=== PATIENT | male | born 1950 | race Caucasian/White ===

== ENCOUNTER 2018-10-18 15:25 | Emergency (ER) | payer BC, MEDICARE, SELFPAY ==
[2018-10-18 15:30] VITALS: BP 149/94; RESP 16; TEMP 36.5; O2SAT 95
--- NOTE | 2018-10-18 16:24 | DI.CT_ITS ---
SYMPTOMS/DIAGNOSIS: FALL, LOC, MIDLINE C SPINE PAIN OVER C6 CRANIAL CT (WITHOUT CONTRAST): A noncontrast cranial CT was performed. No priors. The ventricular system is normal in appearance. There is no evidence of an intracranial mass lesion. There is no evidence of a subdural or epidural hematoma. No focal areas of decreased attenuation are seen. IMPRESSION: Normal noncontrast Cranial CT. CT SCAN OF THE CERVICAL SPINE: Multiple contiguous axial images of the cervical spine were obtained. Sagittal and coronal reformatted images were evaluated on the Siemens workstation. There is normal alignment of the cervical spine. No acute fractures or subluxations are seen. Moderate degenerative changes are seen in the cervical spine. The findings are most marked from C 4 - 5 through C 6 - 7. Note is made of a smoothly marginated mass in the left parapharyngeal space. Its lateral margin abuts the left pterygoid muscle. Medially it displaces the soft tissues narrowing the oropharyngeal airway. Inferiorly it abuts the left submandibular gland. The adjacent bone shows no abnormality. The lung apices are clear. IMPRESSION: 1. No acute fracture or subluxation in the cervical spine. 2. Degenerative changes in the cervical spine. 3. Well circumscribed 6 x 3.5 x 2.1 cm mass in the left parapharyngeal space. Both benign and malignant processes should be included in the differential. A post CT or MRI of the neck is recommended for further evaluation. Ultrasound may also provide additional information.
--- NOTE | 2018-10-18 17:58 | DI.VRAD_ITS ---
Addendum created by Carlos Manuel Rodriguez MD on 10/18/2018 6:01:45 PM EST I personally discussed the findings with BALBINA AGOSTO M.D. on 10/18/2018 at 6:01 PM EST by telephone conference call. Initial report created on 10/18/2018 5:57:37 PM EST EXAM: CT Head Without Contrast EXAM DATE/TIME: 10/18/2018 4:51 PM CLINICAL HISTORY: 68 years old, male; Injury or trauma; Fall; Initial encounter; Abrasion; Additional info: Fall loc midline c spine pain over c6 TECHNIQUE: Axial computed tomography images of the head/brain without contrast. Coronal and sagittal reformatted images were created and reviewed. COMPARISON: No relevant prior studies available. FINDINGS: Brain: Unremarkable. No hemorrhage. No significant white matter disease. No edema. Ventricles: Unremarkable. No ventriculomegaly. Bones/joints: Unremarkable. No acute fracture. Sinuses: Normal as visualized. No acute sinusitis. Mastoid air cells: Normal as visualized. No mastoid effusion. Soft tissues: Unremarkable. IMPRESSION: No acute intracranial abnormality. EXAM: CT Cervical Spine Without Contrast EXAM DATE/TIME: 10/18/2018 4:51 PM CLINICAL HISTORY: 68 years old, male; Injury or trauma; Fall; Initial encounter; Abrasion; Additional info: Fall loc midline c spine pain over c6 TECHNIQUE: Axial computed tomography images of the cervical spine without intravenous contrast. Coronal and sagittal reformatted images were created and reviewed. COMPARISON: No relevant prior studies available. FINDINGS: Vertebrae: Degenerative disc disease and facet arthrosis throughout the cervical spine. No fracture or subluxation. Discs/Spinal canal/Neural foramina: Bilateral neural foraminal bony stenosis at C3-C4 and C4-C5, C5-C6 and C6-C7. Mild bony spinal stenosis at C4-C5, C5-C6 and C6-C7. Soft tissues: There is a smoothly marginated mass measuring 6.0 cm craniocaudad by 3.5 cm transverse by 2.1 cm AP within the left parapharyngeal space. This mass has a homogeneous appearance with density measurements ranging from 75-85 Hounsfield units. The medial edge of the mass deviates the left lateral pharyngeal mucosal to the right resulting in mild narrowing of the oropharyngeal airway. The anterior margin of the mass abuts the base of the tongue. The posterior margin of the mass abuts fat and possibly displaces the left internal carotid artery. The lateral edge of the mass abuts the left medial pterygoid muscles and the inferior margin of the mass abuts the left submandibular gland. Surrounding soft tissues are unremarkable. No stranding of fat or other inflammatory changes seen. Differential diagnosis includes both cystic and solid masses including benign and malignant processes. A well-defined hematoma or hemorrhage within any underlying cystic lesion is not completely excluded. Further clinical evaluation is needed. Lungs: Lung apices are normal. IMPRESSION: 1. Degenerative spondylosis of the cervical spine. 2. No acute fracture. 3. Well-defined smoothly marginated mass within the left parapharyngeal space. Differential diagnosis includes both cystic and solid lesions including benign and malignant processes. Well-defined hematoma or hemorrhage within an underlying cystic lesion is not completely excluded. Dictated and Authenticated by: Carlos Manuel Rodriguez MD. Ordering:SERA Whatley MD
--- NOTE | 2018-10-18 17:58 | ED.GENADUL_ITS ---
Discharge Plan Disposition Patient Disposition: HOME Condition: Good Discharge Details Chief Complaint: HeadInjury Clinical Impression: Concussion, Mass in neck Primary Care Provider: DONNA KWON ED Provider: Chacorta Weber Discharge Instructions Instructions: Concussion (ED) Additional Instructions: Please take Tylenol and Motrin as needed for pain. Please rest for the next 24- 48 hours. Please follow-up closely with your primary care provider within the next week for further evaluation of your neck mass. You do need further surgical evaluation of this. If you notice any worsening of your symptoms, or any new symptoms such as vomiting, difficulty breathing, difficulty swallowing, diarrhea, fever, chills, shortness of breath, chest pain, numbness, weakness, or fainting , please return immediately to the emergency department for reevaluatio n. Please follow up with your primary care provider as soon as possible for reassessment and reevaluation. As always, it was a pleasure participating in your medical care today. Medical Decision Making This is a 68-year-old male who presents after a fall. Patient slipped twice on the ice and hit his head. He did have loss of consciousness a second time. Mild headache, minimal pain over C6 in the midline, worsening paraspinal pain no. Physical exam demonstrates no neurologic deficits, no significant abnormalities on exam. Feel his signs and symptoms most clinically consistent with concussion. Number because of the mechanism as well as his midline pain will get CT scan of the head neck. CT scan results have returned and demonstrate no acute evidence of fracture or bleed for the C-spine or the brain, however the patient does have a notable well-defined mass on his left neck on CT scan. I did go back and reassessed and he does have a mild to moderate submandibular mass that is notable, but not present on visual exam but present with mild palpation. I did reassess the patient he has no complaints of difficulty swallowing, drinking, or other abnormality. With no evidence of acute intracranial or cervical pathology, I feel he can be discharged. Patient clearly does need close follow-up with his PCP and a surgeon for further evaluation of the neck mass. With no difficulty breathing, swallowing or drinking feel that he can be safely discharged home still for the time being. We will send him home with a CD, I discussed with him the importance of follow- up and biopsy. I have extensively reviewed the treatment plan and discharge instructions with the patient and their family. I have addressed all patient concerns at this time. The patient and family was made aware of what symptoms to monitor for that would warrant a return to the emergency department. Discussed the plan with the patient and family, they demonstrate verbal understanding and agreement with our assessment and plan at this time. EXAM: CT Cervical Spine Without Contrast EXAM DATE/TIME: 10/18/2018 4:36 PM CLINICAL HISTORY: 30 years old, male; Pain; Neck pain; Patient HX: Fall, loc, midline cspine pain, HX of c1 FX. TECHNIQUE: Axial computed tomography images of the cervical spine without intravenous contrast. All CT scans at this facility use at least one of these dose optimization techniques: automated exposure control; mA and/or kV adjustment per patient size (includes targeted exams where dose is matched to clinical indication); or iterative reconstruction. Coronal and sagittal reformatted images were created and reviewed. COMPARISON: CTA NECK/CAROTID 05/13/2017 8:20 PM FINDINGS: Vertebrae: There is a reversal of the normal lordosis, related to positioning or spasm. Preserved vertebral body heights. Normal craniocervical junction and atlantoaxial joint. Preserved posterior elements Discs/Spinal canal/Neural foramina: Minimal degenerative disease noted at C4-C5 and C5-C6, predominantly manifested by tiny anterior osteophytes. Preserved intervertebral disc spaces. Preserved spinal canal. Soft tissues: Unremarkable. Lungs: Lung apices are normal. IMPRESSION: Negative for acute skeletal pathology. IMPRESSION: 1. Degenerative spondylosis of the cervical spine. 2. No acute fracture. 3. Well-defined smoothly marginated mass within the left parapharyngeal space. Differential diagnosis includes both cystic and solid lesions including benign and malignant processes. Welldefined hematoma or hemorrhage within an underlying cystic lesion is not completely excluded. Thank you for allowing us to participate in the care of your patient. Dictated and Authenticated by: Fredi Javier MD EXAM: CT Head Without Contrast EXAM DATE/TIME: 10/18/2018 4:36 PM CLINICAL HISTORY: 30 years old, male; Pain; Neck pain; Patient HX: Fall, loc, midline cspine pain, HX of c1 FX. TECHNIQUE: Axial computed tomography images of the head/brain without contrast. All CT scans at this facility use at least one of these dose optimization techniques: automated exposure control; mA and/or kV adjustment per patient size (includes targeted exams where dose is matched to clinical indication); or iterative reconstruction. Coronal and sagittal reformatted images were created and reviewed. COMPARISON: CTA NECK/CAROTID 05/13/2017 8:20 PM FINDINGS: Brain: Normal. No hemorrhage. No significant white matter disease. No edema. Ventricles: Normal. No ventriculomegaly. Bones/joints: Normal. No acute fracture. Sinuses: Mild sinusitis suggested. Mastoid air cells: Normal as visualized. No mastoid effusion. Orbits: Unremarkable. Soft tissues: Normal. IMPRESSION: Negative for acute intracranial pathology. HPI General Date/Time Provider Initiated Documentation: 10/18/18 15:45 . HPI Narrative: This is a 68-year-old male with no significant past medical history who takes no blood thinners, and only takes herbal supplements who presents today for evaluation of fall. Patient is not from the area, and he is here for a . Patient was walking at the and slipped and hit his head twice. Second time he did have a loss of consciousness, was slightly confused for a few minutes after the initial event. He was able to get up and ambulate around without difficulty. Patient denies any significant chest or back pain, he does admit to very mild neck pain as well as a mild headache. He denies any vision changes, numbness tingling or weakness. He denies any nausea vomiting or diarrhea. No other complaints at this time. No other modifying factors. He denies any recent surgeries, IV or illicit drug use, pertinent family history. General Stated Complaint: HeadInjury JAKOB: 2 Review of Systems Review of Systems All systems reviewed & are unremarkable except as noted in HPI and below PFSH Social History Smoking/Tobacco Use Status: Never Exam Narrative Exam Narrative: 1.Const: Well-nourished, Well-developed, appearing stated age 2.Eyes: PERRL, no conjunctival injection, and symmetrical lids. 3.ENT: Atraumatic external nose and ears. Moist MM. Neck: Symmetric, trachea midline, No thyromegaly. There is no evidence of raccoon eyes, talley sign, CSF rhinorrhea, mastoid tenderness, cranial crepitus, hemotympanum, exophthalmos, or hyphema. Patient demonstrates intact dentition with no signs of tooth avulsion or fracture, no signs of jaw deformity, no evidence of a LeFort's fracture, with an intact palate, nose and orbital region. There is no evidence of a nasal se ptal hematoma. No proptosis. Jaw closes symmetrically. Airway is clear. 4.CVS: +S1/S2, No murmurs or gallops. Peripheral pulses 2+ and equal in all extremities. Brisk capillary refill in all extremities. 5.RESP: Unlabored respiratory effort. Clear to auscultation bilaterally. No wheezes rales or rhonchi 6.GI: Soft, Nontender/Nondistended, No hepatosplenomegaly. No guarding or rebound. 7.MSK: Normocephalic/Atraumatic, Extremities w/o deformity or ttp No cyanosis or clubbing, Normal movement of all extremities. No midline tenderness to palpation over the TLS spine. Minimal tenderness over C6 for her C-spine. Slightly worse paraspinal tenderness. Normal ROM in flexion, extension, side bend, and rotation. Patient has +5 out of 5 strength in the lower extremities in dorsiflexion and plantarflexion, knee flexion and extension, hip flexion and extension. There is +2 over 2 dorsalis pedis pulses bilaterally. There is normal sensation to the skin with light touch at the foot, knee, and hip. Normal saddle sensation. Good sensation over the deep sural nerve area bilaterally. Rectal exam deferred. Reflexes are +2 over 4 in the patellar reflex bilaterally. +5 out of 5 strength in the medial, ulnar, radial nerve distribution bilaterally in the hands as well as intact light touch sensation to these dermatomes on the hands 8.Skin: Warm, Dry. No rashes or lesions. 9.Neuro: All 6 cardinal planes of vision are fully intact. No evidence of rotatory or vertical nystagmus. The patient demonstrated a normal [id number], good dexterity. There was no evidence of dysdiadochokinesia. Patient was able to ambulate without difficulty. There was no wide-based gait. Romberg, and [id number] are both normal on testing. Sensation was intact bilaterally as well as muscle strength bilaterally for all extremities. Patient was able to verbalize butter cup with no slurring, or miss pronunciation. 10.Psych: (AAO) x3. Appropriate mood and affect Course Vital Signs Temperature 36.5 C 10/18/18 15:30 Respiratory Rate 16 10/18/18 15:30 Blood Pressure 149/94 H 10/18/18 15:30 Pulse Oximetry 95 10/18/18 15:30 Temperature 36.5 C 10/18/18 15:30 Temperature Source Skin 10/18/18 15:30 Respiratory Rate 16 10/18/18 15:30 Respiratory Effort Non-Labored 10/18/18 15:40 Respiratory Depth Normal 10/18/18 15:40 Respiratory Pattern Normal 10/18/18 15:40 Blood Pressure 149/94 H 10/18/18 15:30 Blood Pressure Position Sitting 10/18/18 15:30 Pulse Oximetry 95 10/18/18 15:30 Oxygen Delivery Method Room Air 10/18/18 15:30 Oxygen Flow Rate 0 10/18/18 15:30 Pain Level 3 10/18/18 15:30 Lab/Test Results Lab/Test Results: Laboratory Tests Range/Units 10/18/18 10/18/18 10/18/18 16:00 16:01 16:01 WBC Cancelled RBC Cancelled Hgb Cancelled Hct Cancelled MCV Cancelled MCH Cancelled MCHC Cancelled RDW Cancelled Plt Count Cancelled MPV Cancelled Abs Immat Gran (auto) Cancelled Immature Gran % Cancelled Neutrophils % Cancelled Band Neutrophils % Cancelled Lymphocytes % Cancelled Atypical Lymphs % Cancelled Monocytes % Cancelled Eosinophils % Cancelled Basophils % Cancelled Absolute Neutrophils Cancelled Absolute Lymphocytes Cancelled Absolute Monocytes Cancelled Absolute Eosinophils Cancelled Absolute Basophils Cancelled Metamyelocytes Cancelled Myelocytes Cancelled Promyelocytes Cancelled Nucleated RBCs Cancelled Differential Comment Cancelled Other Cell Type Cancelled RBC Morphology Cancelled Polychromasia Cancelled Hypochromasia Cancelled Poikilocytosis Cancelled Basophilic Stippling Cancelled Anisocytosis Cancelled Microcytosis Cancelled Macrocytosis Cancelled Spherocytes Cancelled Target Cells Cancelled Tear Drop Cells Cancelled Ovalocytes Cancelled Stomatocytes Cancelled Schmid-[place]ald[place] Bodies Cancelled Fay Cells Cancelled Acanthocytes (Spur) Cancelled Schistocytes Cancelled PT INR APTT Sodium Cancelled Potassium Cancelled Chloride Cancelled Carbon Dioxide Cancelled Anion Gap Cancelled BUN Cancelled Creatinine Cancelled Estimated GFR/1.73 m2 Cancelled Glucose Cancelled Calcium Cancelled Total Bilirubin Cancelled AST Cancelled ALT Cancelled Alkaline Phosphatase Cancelled Total Protein Cancelled Albumin Cancelled Patient ABO/Rh Cancelled Range/Units 10/18/18 16:01 WBC RBC Hgb Hct MCV MCH MCHC RDW Plt Count MPV Abs Immat Gran (auto) Immature Gran % Neutrophils % Band Neutrophils % Lymphocytes % Atypical Lymphs % Monocytes % Eosinophils % Basophils % Absolute Neutrophils Absolute Lymphocytes Absolute Monocytes Absolute Eosinophils Absolute Basophils Metamyelocytes Myelocytes Promyelocytes Nucleated RBCs Differential Comment Other Cell Type RBC Morphology Polychromasia Hypochromasia Poikilocytosis Basophilic Stippling Anisocytosis Microcytosis Macrocytosis Spherocytes Target Cells Tear Drop Cells Ovalocytes Stomatocytes Schmid-[place] Bodies [place] Cells Acanthocytes (Spur) Schistocytes PT Cancelled INR Cancelled APTT Cancelled Sodium Potassium Chloride Carbon Dioxide Anion Gap BUN Creatinine Estimated GFR/1.73 m2 Glucose Calcium Total Bilirubin AST ALT Alkaline Phosphatase Total Protein Albumin Patient ABO/Rh
== END 2018-10-18 18:36 | disposition home or self-care (01) ==
PROVIDERS: Emergency Provider Student in an Organized Health Care Education/Training Program; PCP Family Medicine
DX: S06.0X9A Concussion with loss of consciousness of unspecified duration, initial encounter (principal); M54.2 Cervicalgia; W00.0XXA Fall on same level due to ice and snow, initial encounter; R93.0 Abnormal findings on diagnostic imaging of skull and head, not elsewhere classified
CPT/HCPCS: 80053; 86900; 86901; 90471; 99284; 70450; 72125; 85025; 85610; 85730; L0172